=== PATIENT | female | born 1990 | race Hispanic/Latino ===

== ENCOUNTER 2021-03-09 12:17 | Emergency (ER) | payer OTHER ==
[~2021-03-09] VITALS: Ht 162.6 cm; Wt 88.5 kg
[2021-03-09 12:23] VITALS: BP 133/82
[2021-03-09 14:39] LABS: APPEARANCE,URINE Clear (CLEAR); BILIRUBIN,URINE Negative (NEGATIVE); COLOR,URINE Yellow (YELLOW); GLUCOSE, URINE (UA) Negative (NEGATIVE); KETONES,URINE Negative (NEGATIVE); LEUKOCYTE ESTERASE ,URINE Small (NEGATIVE); NITRATE,URINE Negative (NEGATIVE); OCCULT BLOOD,URINE Large (NEGATIVE); PROTEIN,URINE Negative (NEGATIVE); UROBILINOGEN,URINE 0.2 mg/dL (0.2-1.0)
[2021-03-09 14:41] LABS: HCG,QUAL RESULT NEGATIVE (NEGATIVE)
[2021-03-09 15:12] LABS: BACTERIA,URINE Few /HPF (None Seen)
[2021-03-09 15:13] LABS: MUCUS,URINE Few LPF (None Seen); SQUAMOUS EPITHELIAL CELL,UR Moderate /HPF (0-2)
[2021-03-09] MEDS ORDERED: CEFTRIAXONE 1G VIAL IVP ONE (19:30)
[2021-03-09] MEDS ORDERED: CEPH500B PO (19:33)
[2021-03-09] MEDS ORDERED: LIDOCAINE HCL-MPF 1% 2ML VIAL ONE (19:45)
== END 2021-03-09 19:58 | disposition home or self-care (01) ==
LOC: EDH 12:17
DX: N39.0 Urinary tract infection, site not specified (principal); N93.9 Abnormal uterine and vaginal bleeding, unspecified
CPT/HCPCS: 36415; 81001; 81025; 84703; 96374; 99283; J0696; J3490

== ENCOUNTER 2022-02-02 23:31 | Emergency (ER) | payer BC, OTHER ==
[~2022-02-02] VITALS: Ht 160 cm; Wt 92.5 kg
[~2022-02-02 23:31] MED LIST: CEPH500B PO
[2022-02-03] MEDS: KETOROLAC 60 MG VIAL (30MG/ML) IM ONE (00:30)
[2022-02-03 00:31] LABS: APPEARANCE,URINE SL CLOUDY (CLEAR); BILIRUBIN,URINE NEGATIVE (NEGATIVE); COLOR,URINE YELLOW (YELLOW); GLUCOSE, URINE (UA) NEGATIVE (NEGATIVE); HCG,QUALITATIVE URINE NEGATIVE (NEGATIVE); KETONES,URINE NEGATIVE (NEGATIVE); LEUKOCYTE ESTERASE ,URINE SMALL (NEGATIVE); NITRATE,URINE NEGATIVE (NEGATIVE); OCCULT BLOOD,URINE NEGATIVE (NEGATIVE); PROTEIN,URINE NEGATIVE (NEGATIVE); UROBILINOGEN,URINE 0.2 mg/dL (0.2-1.0)
[2022-02-03 00:36] LABS: BACTERIA,URINE Moderate /HPF (None Seen); MUCUS,URINE Few LPF (None Seen); RBC,URINE None Seen /HPF (0-1); SQUAMOUS EPITHELIAL CELL,UR Moderate /HPF (0-2)
[2022-02-03] MEDS ORDERED: IBUP-2070 PO (01:48)
[2022-02-03] MEDS ORDERED: CEPH500B PO (01:48)
[2022-02-03 02:00] VITALS: BP 107/58
== END 2022-02-03 02:05 | disposition home or self-care (01) ==
LOC: EDH 23:31
DX: N39.0 Urinary tract infection, site not specified (principal); Z79.1 Long term (current) use of non-steroidal anti-inflammatories (NSAID)
CPT/HCPCS: 99285; 76856; 87088; 81001; 81025; 74176; 96372; J1885

== ENCOUNTER 2023-03-25 20:18 | Emergency (ER) | payer BC, OTHER ==
[~2023-03-25] VITALS: Ht 160 cm; Wt 88.5 kg
[~2023-03-25 20:18] MED LIST changes: +IBUP-2070 PO
[2023-03-25 20:44] VITALS: BP 124/94; PULSE 77; RESP 16
== END 2023-03-26 02:37 | disposition home or self-care (01) ==
LOC: EDH 20:18
DX: R10.9 Unspecified abdominal pain (principal); Z53.21 Procedure and treatment not carried out due to patient leaving prior to being seen by health care provider
CPT/HCPCS: 99281